=== PATIENT | male | born 1995 | race Caucasian/White ===

== ENCOUNTER → 2017-06-04 | Outpatient (REF) | payer OTHER ==
[2017-06-04 13:05] LABS: INFLUENZA A AMPLIFICATION NEGATIVE (NEGATIVE); INFLUENZA B AMPLIFICATION NEGATIVE (NEGATIVE)
== END ==
LOC: M LAB REF 11:41
DX: J11.1 Influenza due to unidentified influenza virus with other respiratory manifestations (principal)

== ENCOUNTER → 2017-06-06 | Outpatient (REF) | payer OTHER ==
[2017-06-07 09:57] LABS: CONTROL LINE MONO INT CTR LINE PRESENT; MONO SCRN NEGATIVE (NEGATIVE)
== END ==
LOC: M LAB REF 18:30
DX: J03.90 Acute tonsillitis, unspecified (principal)

== ENCOUNTER → 2020-03-24 | Outpatient (CLI) | payer SELFPAY | LOC: M LABSMTC 08:34 | PROVIDERS: ATTEND Pediatrics | DX: Z20.828 Contact with and (suspected) exposure to other viral communicable diseases (principal) ==